=== PATIENT | male | born 1975 | race Caucasian/White ===

== ENCOUNTER 2018-05-07 11:16 | Day surgery (SDC) | payer OTHER ==
[~2018-05-07] VITALS: Ht 170.2 cm; Wt 74.8 kg
[2018-05-07] MEDS ORDERED: MIDAZOLAM HCL 5 MG/5 ML VIAL ONE (12:10)
[2018-05-07] MEDS ORDERED: NS 50 ML BAG IV ONE (12:10)
[2018-05-07] MEDS ORDERED: LIDOCAINE PF 2%, 200 MG/10 ML AMPUL.LUER (EPIDURAL) INJ ONE (12:10)
[2018-05-07] MEDS ORDERED: BUPIVACAINE /PF 0.25% 30 ML VIAL INJ ONE (12:10)
[2018-05-07] MEDS ORDERED: methylPREDNISolone ACETATE 80 MG/ML ONE (12:10)
[2018-05-07] MEDS: DIPHENHYDRAMINE INJ 50 MG/ML VIAL ONE ×2 (12:29→14:26)
[2018-05-07] MEDS ORDERED: IOHEXOL 50 ML IV ONE (12:40)
[2018-05-07 17:47] VITALS: BP_SYST 109
[2018-05-07] MEDS ORDERED: LR 1,000 ML IV SCH (18:00)
[2018-05-07] MEDS ORDERED: MIDAZOLAM HCL 5 MG/5 ML VIAL IVP ONE ×2 (18:00)
== END 2018-05-07 13:10 | disposition home or self-care (01) ==
LOC: SDS 11:16 → SMU 11:56 → SDS 13:10
PROVIDERS: ATTEND Internal Medicine
DX: M51.16 Intervertebral disc disorders with radiculopathy, lumbar region (principal); M79.1 Myalgia; M50.90 Cervical disc disorder, unspecified, unspecified cervical region
CPT/HCPCS: 62323; J1040; J1200; J2001; J2250; J3490; J7120; Q9967; 77003

== ENCOUNTER 2018-11-03 11:14 | Day surgery (SDC) | payer OTHER ==
[~2018-11-03] VITALS: Ht 170.2 cm; Wt 65.8 kg
[2018-11-03] MEDS ORDERED: LIDOCAINE 2%, 20 ML MDV INJ ONE (11:15)
[2018-11-03] MEDS ORDERED: IOHEXOL 300 mgI/mL, 50 mL INFUS..BTL IV ONE (11:15)
[2018-11-03] MEDS ORDERED: BUPIVACAINE /PF 0.25% 30 ML VIAL INJ ONE (11:15)
[2018-11-03] MEDS ORDERED: methylPREDNISolone ACETATE 40 MG/ML IM ONE (11:15)
[2018-11-03] MEDS ORDERED: MIDAZOLAM HCL 5 MG/5 ML VIAL ONE (11:31)
[2018-11-03] MEDS ORDERED: DIPHENHYDRAMINE INJ 50 MG/ML VIAL IVP ONE (12:15)
[2018-11-03 12:47] VITALS: BP_SYST 123
== END 2018-11-03 17:04 | disposition home or self-care (01) ==
LOC: SDS 11:14 → SMU 11:18 → SDS 17:04
PROVIDERS: ATTEND Internal Medicine
DX: M51.16 Intervertebral disc disorders with radiculopathy, lumbar region (principal); M54.5 Low back pain; Z79.899 Other long term (current) drug therapy; F32.9 Major depressive disorder, single episode, unspecified
CPT/HCPCS: 62323; J1030; J1200; J2001; J2250; J3490; J7120; Q9967

== ENCOUNTER 2019-05-24 09:48 | Day surgery (SDC) | payer OTHER ==
[~2019-05-24] VITALS: Ht 170.2 cm; Wt 68.0 kg
[2019-05-24] MEDS ORDERED: BUPIVACAINE /PF 0.25% 30 ML VIAL INJ ONE (09:49)
[2019-05-24] MEDS ORDERED: methylPREDNISolone ACETATE 40 MG/ML IM ONE (09:49)
[2019-05-24] MEDS ORDERED: LIDOCAINE 2%, 20 ML MDV INJ ONE (09:49)
[2019-05-24] MEDS ORDERED: MIDAZOLAM HCL 5 MG/5 ML VIAL ONE ×2 (10:30→12:14)
[2019-05-24] MEDS ORDERED: DIPHENHYDRAMINE INJ 50 MG/ML VIAL ONE (10:31)
[2019-05-24 12:00] VITALS: BP_SYST 104
== END 2019-05-24 12:00 | disposition home or self-care (01) ==
LOC: SDS 09:48
PROVIDERS: ATTEND Internal Medicine
DX: M54.16 Radiculopathy, lumbar region (principal); M50.90 Cervical disc disorder, unspecified, unspecified cervical region; M47.812 Spondylosis without myelopathy or radiculopathy, cervical region; G89.29 Other chronic pain; F32.9 Major depressive disorder, single episode, unspecified; Z79.899 Other long term (current) drug therapy
CPT/HCPCS: 76000; J1030; J1200; J2001; J2250; J3490

== ENCOUNTER 2019-09-13 11:12 | Day surgery (SDC) | payer OTHER ==
[~2019-09-13 11:12] MED LIST: BUPIVACAINE /PF 0.25% 30 ML VIAL INJ ONE; IOHEXOL 300 mgI/mL, 50 mL INFUS..BTL IV ONE; LIDOCAINE 2%, 20 ML MDV ONE; methylPREDNISolone ACETATE 40 MG/ML ONE
[2019-09-13] MEDS: MIDAZOLAM HCL 5 MG/5 ML VIAL ONE ×2 (11:59→12:03)
[2019-09-13] MEDS: DIPHENHYDRAMINE INJ 50 MG/ML VIAL ONE ×2 (12:00→12:04)
[2019-09-13] MEDS ORDERED: MIDAZOLAM HCL 5 MG/5 ML VIAL ONE (12:17)
[2019-09-13 14:34] VITALS: BP_SYST 142
== END 2019-09-13 13:15 | disposition home or self-care (01) ==
LOC: SDS 11:12
PROVIDERS: ATTEND Internal Medicine
DX: M51.9 Unspecified thoracic, thoracolumbar and lumbosacral intervertebral disc disorder (principal); F32.9 Major depressive disorder, single episode, unspecified; M47.816 Spondylosis without myelopathy or radiculopathy, lumbar region; M47.812 Spondylosis without myelopathy or radiculopathy, cervical region; G89.29 Other chronic pain; M54.5 Low back pain; M48.02 Spinal stenosis, cervical region; M79.18 Myalgia, other site; Z79.899 Other long term (current) drug therapy
CPT/HCPCS: 62323; J1030; J1200; J2001; J2250; J3490; J7120; Q9967; 76000

== ENCOUNTER 2021-02-27 10:02 | Outpatient (CLI) | payer OTHER, SELFPAY ==
[2021-02-27 12:59] VITALS: BP_SYST 121
[2021-02-27] MEDS ORDERED: MIDAZOLAM HCL 5 MG/5 ML VIAL ONE (12:59)
== END 2021-02-27 14:24 | disposition home or self-care (01) ==
LOC: SLB 10:02 → SDS 10:12 → EDSTATUS 10:45 → SLB 14:24
PROVIDERS: ATTEND Internal Medicine
DX: Z01.812 Encounter for preprocedural laboratory examination (principal); Z20.822 Contact with and (suspected) exposure to COVID-19; M51.9 Unspecified thoracic, thoracolumbar and lumbosacral intervertebral disc disorder
CPT/HCPCS: 36415; J2250